=== PATIENT | male | born 1990 | race Caucasian/White ===

== ENCOUNTER 2019-08-21 20:30 | Outpatient (CLI) | payer OTHER | END 2019-08-21 20:31 | disposition home or self-care (01) | LOC: SLEEPLAB 20:30 | PROVIDERS: ATTEND Otolaryngology Plastic Surgery within the Head & Neck | DX: G47.33 Obstructive sleep apnea (adult) (pediatric) (principal); R06.83 Snoring; G47.00 Insomnia, unspecified; G47.10 Hypersomnia, unspecified; F43.10 Post-traumatic stress disorder, unspecified; R09.82 Postnasal drip; G47.31 Primary central sleep apnea | CPT/HCPCS: 95811 ==

== ENCOUNTER 2019-12-01 09:44 | Emergency (ER) | payer OTHER ==
--- NOTE | 2019-12-01 10:21 | RAD ---
PORTABLE CHEST 1 VIEW: Date: 12/01/2019 Time: 1009 hours HISTORY: Left-sided chest pain. FINDINGS: The heart size is normal. The lungs are clear. The bony thorax is normal. IMPRESSION: Normal exam. POS: [facility]ANT[facility]
[2019-12-01 10:42] LABS: #Basophils 0.1 thou/uL (0.0-0.2); #Eosinphils 0.2 thou/uL (0.0-0.7); #Monocytes 0.7 thou/uL (0.11-0.59); %Basophils 1.1 % (0.0-1.0); %Eosinophils 2.4 % (0.0-10.0); %Lymphocytes 33.1 % (21.0-51.0); %Monocytes 7.2 % (0.0-10.0); %Neutrophils 56.2 % (42.0-75.0); Hemoglobin 16.3 g/dL (14.0-18.0); Mean Corpuscular HGB CONC 33.3 g/dL (32.0-36.0); Mean Corpuscular Hemoglobin 28.9 pg (27.0-31.0); Mean Corpuscular Volume 86.7 fL (78.0-98.0); Mean Platelet Volume 7.2 fL (7.4-10.4); Platelet Count 359 thou/uL (130-400); RBC Distribution Width 11.6 % (11.5-14.5); Red Blood Cell (RBC) Count 5.66 mill/uL (4.70-6.10); White Blood Cell (WBC) Count 8.9 thou/uL (4.8-10.8)
[2019-12-01 11:03] LABS: ALT (SGPT) 62 U/L (8-55); AST (SGOT) 29 U/L (5-34); Albumin 4.7 g/dL (3.5-5.0); Alkaline Phosphatase 118 U/L (40-110); Anion Gap 13 mmol/L (10-20); BUN (Urea Nitrogen) 16 mg/dL (8.9-20.6); Bilirubin, Total 0.4 mg/dL (0.2-1.2); Calc. Creatinine Clearance 0 mL/min (70-130); Calcium 9.7 mg/dL (7.8-10.44); Carbon Dioxide 25 mmol/L (22-29); Chloride 105 mmol/L (98-107); Estimated GFR-MDRD 87; Globulin 2.8 g/dL (2.4-3.5); Glucose 116 mg/dL (70-105); Lipase 16 U/L (8-78); Protein, Total 7.5 g/dL (6.0-8.3); Sodium 139 mmol/L (136-145)
== END 2019-12-01 12:07 | disposition home or self-care (01) ==
LOC: ERS 09:44
DX: M54.9 Dorsalgia, unspecified (principal); M25.512 Pain in left shoulder; I10 Essential (primary) hypertension; F41.9 Anxiety disorder, unspecified; F32.9 Major depressive disorder, single episode, unspecified; F90.9 Attention-deficit hyperactivity disorder, unspecified type; Z79.899 Other long term (current) drug therapy; F17.220 Nicotine dependence, chewing tobacco, uncomplicated
CPT/HCPCS: 36415; 71045; 80053; 83690; 84484; 85025; 85379; 93005

== ENCOUNTER 2020-01-08 20:53 | Emergency (ER) | payer OTHER | END 2020-01-08 23:59 | disposition home or self-care (01) | LOC: ERS 20:53 | DX: M54.5 Low back pain (principal); F41.9 Anxiety disorder, unspecified; F32.9 Major depressive disorder, single episode, unspecified; F43.10 Post-traumatic stress disorder, unspecified; Z79.899 Other long term (current) drug therapy | CPT/HCPCS: 99283 ==

== ENCOUNTER 2020-10-16 09:33 | Outpatient (CLI) | payer OTHER ==
--- NOTE | 2020-10-16 12:40 | CT ---
LUMBAR SPINE CT WITHOUT CONTRAST: HISTORY: Low back pain. History of back surgery. COMPARISON: None. FINDINGS: There are 5 lumbar-type vertebrae. Lumbar spine vertebral body height is maintained. There is no acut e lumbar spine fracture. There are remote bilateral L5 pars defects. There is associated 3 mm of anterolisthesis of L5 upon S1. There is pseudoarthrosis of the left L5 ala with the adjacent sacrum s uggesting partial sacralization of L5. There is remote fracture involving the L2 spinous process. Appropriate attenuation visualized paraspinal muscles and solid organs. Presacral fat is preserved. Visualized sacrum and bony pelvis are intact. Sacral ala preserved. Limited evaluation the contents of the central spinal canal and neural foramina due to technique. T11-T12: No significant central canal stenosis. Patent bilateral foramina. T12-L1: Left and right paracentral disc herniation. Mild central canal stenosis. Patent bilateral zoe ral foramina. L1-L2: Broad-based disc bulge abuts the thecal sac. Mild canal stenosis. Patent bilateral neural fora isadora. L2-L3: Broad-based disc bulge abuts the thecal sac. There is a left hemilaminotomy defect. There is m ild central canal stenosis. Prominent posterior epidural fat is identified. Mild bilateral neural foraminal narrowing. L3-L4: Broad-based disc bulge, ligament flavum thickening and facet hypertrophy result in mild to mod erate central canal stenosis. Moderate bilateral neural foraminal narrowing. L4-L5: Broad-based disc bulge, ligament flavum thickening and facet hypertrophy are present. Adequate central canal stenosis. There is posterior disc herniation with inferior disc migration. Narrowing of bilateral subarticular zones with obscuration of bilateral traversing L5 nerve roots. Moderate to severe bilateral foraminal narrowing. L5-S1: Broad-based disc bulge abuts the thecal sac. No significant central canal stenosis. Mild to mo derate bilateral foraminal narrowing. IMPRESSION: 1. Chronic changes involving the lumbosacral junction as described above. Grade 1 anterolisthesis of L5 upon S1. 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 2. Post surgical changes at L2-L3. Remote L2 spinous process fracture. 3. Varying degrees of central canal stenosis and neural foraminal narrowing as detailed above. Transcribed Date/Time: 10/16/2020 1:13 PM
== END 2020-10-16 09:34 | disposition home or self-care (01) ==
LOC: TBSIIMAG 09:33
PROVIDERS: ATTEND Neurological Surgery
DX: M54.5 Low back pain (principal); M43.17 Spondylolisthesis, lumbosacral region; M48.061 Spinal stenosis, lumbar region without neurogenic claudication; M48.07 Spinal stenosis, lumbosacral region; Z98.890 Other specified postprocedural states
CPT/HCPCS: 72131

== ENCOUNTER 2021-02-08 07:52 | Emergency (ER) | payer OTHER ==
[2021-02-08] MEDS ORDERED: Ketorolac Tromethamine 30 MG/ML VIAL ONE (08:41)
[2021-02-08] MEDS ORDERED: Dexamethasone 10 MG/ML VIAL ONE (08:48)
== END 2021-02-08 09:05 | disposition home or self-care (01) ==
LOC: ERS 07:52
DX: G62.9 Polyneuropathy, unspecified (principal); M62.838 Other muscle spasm; I10 Essential (primary) hypertension; G43.909 Migraine, unspecified, not intractable, without status migrainosus; F17.220 Nicotine dependence, chewing tobacco, uncomplicated
CPT/HCPCS: 96372; 99283; J1100; J1885

== ENCOUNTER 2021-02-12 07:50 | Emergency (ER) | payer OTHER ==
[2021-02-12 09:16] LABS: Hemoglobin 16.3 g/dL (14.0-18.0); Mean Corpuscular HGB CONC 32.1 g/dL (32.0-36.0); Mean Corpuscular Hemoglobin 28.7 pg (27.0-31.0); Mean Corpuscular Volume 89.4 fL (78.0-98.0); Mean Platelet Volume 7.5 fL (7.4-10.4); Platelet Count 421 thou/uL (130-400); RBC Distribution Width 11.9 % (11.5-14.5); Red Blood Cell (RBC) Count 5.68 mill/uL (4.70-6.10); White Blood Cell (WBC) Count 21.4 thou/uL (4.8-10.8)
[2021-02-12 09:30] LABS: ALT (SGPT) 66 U/L (8-55); AST (SGOT) 32 U/L (5-34); Albumin 4.3 g/dL (3.5-5.0); Alkaline Phosphatase 95 U/L (40-110); Anion Gap 15 mmol/L (10-20); BUN (Urea Nitrogen) 14 mg/dL (8.9-20.6); Bilirubin, Total 0.4 mg/dL (0.2-1.2); Calc. Creatinine Clearance 0 mL/min (70-130); Calcium 9.5 mg/dL (7.8-10.44); Carbon Dioxide 25 mmol/L (22-29); Chloride 101 mmol/L (98-107); Globulin 2.9 g/dL (2.4-3.5); Glucose 99 mg/dL (70-105); Potassium 4.7 mmol/L (3.5-5.1); Protein, Total 7.2 g/dL (6.0-8.3); Sodium 136 mmol/L (136-145)
[2021-02-12 10:21] LABS: Band 1 % (5-11); Lymphocytes 4 % (21-51); MDiff Complete? YES; Monocytes 12 % (0-10); Neutrophil 77 % (42-75); Platelet Morphology Comment Appears Increased; Polychromasia SLIGHT = 2-3 cells (100X) (0-2/hpf); Reactive Lymphocytes 6 % (0-10)
== END 2021-02-12 15:48 | disposition home or self-care (01) ==
LOC: ERS 07:50
DX: G62.9 Polyneuropathy, unspecified (principal); I10 Essential (primary) hypertension; F17.220 Nicotine dependence, chewing tobacco, uncomplicated
CPT/HCPCS: 36415; 70450; 72141; 80053; 84484; 85025; 85652; 86140; 93005

== ENCOUNTER 2021-11-24 15:17 | Emergency (ER) | payer OTHER ==
[~2021-11-24 15:17] MED LIST: Iopamidol-370 76% 500 ML 1 ML ONE
[2021-11-24 16:32] LABS: Mean Corpuscular HGB CONC 32.8 g/dL (32.0-36.0); Mean Corpuscular Hemoglobin 29.3 pg (27.0-31.0); Mean Corpuscular Volume 89.2 fL (78.0-98.0); Platelet Count 290 thou/uL (130-400); RBC Distribution Width 11.6 % (11.5-14.5); Red Blood Cell (RBC) Count 5.14 mill/uL (4.70-6.10); White Blood Cell (WBC) Count 9.5 thou/uL (4.8-10.8)
[2021-11-24] MEDS ORDERED: Morphine 4 MG/ML VIAL ONE (16:42)
[2021-11-24] MEDS ORDERED: Ondansetron PF 4 MG/2 ML Vial ONE (16:42)
[2021-11-24 16:52] LABS: Band 5 % (5-11); Lymphocytes 19 % (21-51); MDiff Complete? YES; Monocytes 6 % (0-10); Neutrophil 26 % (42-75); Platelet Morphology Comment Appears Adequate; Polychromasia SLIGHT = 2-3 cells (100X) (0-2/hpf); Reactive Lymphocytes 44 % (0-10); Reflex for Review?? YES
[2021-11-24 16:54] LABS: ALT (SGPT) 167 U/L (8-55); AST (SGOT) 125 U/L (5-34); Albumin 3.5 g/dL (3.5-5.0); Alkaline Phosphatase 299 U/L (40-110); Anion Gap 13 mmol/L (10-20); BUN (Urea Nitrogen) 12 mg/dL (8.9-20.6); Bilirubin, Total 1.6 mg/dL (0.2-1.2); Calc. Creatinine Clearance 0 mL/min (70-130); Calcium 8.5 mg/dL (7.8-10.44); Carbon Dioxide 25 mmol/L (22-29); Chloride 98 mmol/L (98-107); Globulin 3.5 g/dL (2.4-3.5); Glucose 90 mg/dL (70-105); Lipase 29 U/L (8-78); Potassium 3.9 mmol/L (3.5-5.1); Sodium 132 mmol/L (136-145)
[2021-11-24 17:07] LABS: Bacteria/HPF 1+ HPF (None Seen); Bilirubin 1+ (Negative); Blood, Urine Negative (Negative); Clarity Clear (Clear); Glucose, Urine (Dipstick) Normal (Negative); Ketone, Urine Negative (Negative); Leukocyte Negative Leu/uL (Negative); Nitrite Negative (Negative); Protein, Urine (Dipstick) 30 mg/dL (Neg-Trace); RBC/HPF 0-3 HPF (0-3); Specific Gravity, Urine 1.028 (1.002-1.036); Squamous Epithelial 0-3 HPF (0-3); WBC/HPF 0-3 HPF (0-3)
== END 2021-11-24 18:48 | disposition home or self-care (01) ==
LOC: ERS 15:17
DX: R10.9 Unspecified abdominal pain (principal); R74.01 Elevation of levels of liver transaminase levels; I10 Essential (primary) hypertension; Z87.891 Personal history of nicotine dependence; Z79.899 Other long term (current) drug therapy
CPT/HCPCS: 36415; 74177; 76705; 80053; 81003; 81015; 83690; 85025; 85060; 96374; 96375; J2270; J2405; Q9967

== ENCOUNTER 2023-06-28 11:46 | Emergency (ER) | payer OTHER ==
[2023-06-28] MEDS ORDERED: Ketorolac Tromethamine 30 MG/ML VIAL ONE (12:39)
[2023-06-28] MEDS ORDERED: Diazepam 5 MG TAB ONE (12:40)
[2023-06-28] MEDS ORDERED: Dexamethasone 4 MG TAB ONE (14:48)
== END 2023-06-28 16:02 | disposition home or self-care (01) ==
LOC: ERS 11:46
DX: M62.830 Muscle spasm of back (principal); I10 Essential (primary) hypertension; F17.220 Nicotine dependence, chewing tobacco, uncomplicated
CPT/HCPCS: 72125; 93005; 96372; J1885; J8540

== ENCOUNTER 2024-07-16 18:59 | Emergency (ER) | payer OTHER ==
[2024-07-16] MEDS ORDERED: Ketorolac Tromethamine 30 MG (1 mL) VIAL ONE (20:28)
[2024-07-16] MEDS ORDERED: Cyclobenzaprine 10 MG TAB ONE (20:28)
[2024-07-16] MEDS ORDERED: predniSONE 20 MG TAB ONE (20:29)
== END 2024-07-16 21:20 | disposition home or self-care (01) ==
LOC: ERS 18:59
DX: M54.50 Low back pain, unspecified (principal); F17.220 Nicotine dependence, chewing tobacco, uncomplicated; I10 Essential (primary) hypertension
CPT/HCPCS: 96372; 99282; J1885; J7512

== ENCOUNTER 2024-09-17 07:56 | Outpatient (CLI) | payer OTHER | END 2024-09-17 07:57 | disposition home or self-care (01) | LOC: BICMRI 07:56 | PROVIDERS: ATTEND Family Medicine | DX: M47.22 Other spondylosis with radiculopathy, cervical region (principal); M54.50 Low back pain, unspecified; M48.02 Spinal stenosis, cervical region; M47.816 Spondylosis without myelopathy or radiculopathy, lumbar region; M48.07 Spinal stenosis, lumbosacral region; M48.061 Spinal stenosis, lumbar region without neurogenic claudication; Z98.890 Other specified postprocedural states | CPT/HCPCS: 72141; 72148 ==